=== PATIENT | female | born 1995 | race African-American/Black ===

== ENCOUNTER 2022-08-20 19:24 | Emergency (ER) | payer BC, MEDICAID, SELFPAY ==
--- NOTE | ~2022-08-20 | XR_ITS ---
EXAM: XR ankle LT min 3V DATE: 08/20/2022 20:11 HISTORY: sports injury, SWELLING W PAIN TO LATERAL ANKLE, LIMITED ROM . COMPARISON: None available. FINDINGS: Normal mineralization. No fracture or dislocation. No lytic or blastic lesion. Joint space s are maintained. No erosion or periosteal change. Soft tissues within normal limits. IMPRESSION: No acute osseous finding in the left ankle. Reviewed, dictated and finalized at location K. ER OFF
[2022-08-20 20:10] VITALS: BP 142/88; PULSE 86; RESP 16; TEMP 36.8; O2SAT 98
--- NOTE | 2022-08-20 21:16 | ED.LOWEXIN ---
HPI - Extremity Injury (Lower) General Chief Complaint: Extremity Injury, Lower Stated Complaint: twisted my ankle Time Seen by Provider: 08/20/22 20:45 History of Present Illness HPI Narrative: 26-year-old female presents to the emergency room for evaluation of left ankle pain. Patient states that she is playing basketball prior to arrival and twisted her ankle. Patient states that she applied some ice on her ankle. Was not ambulatory following the injury. No other injuries. Related Data Allergies Allergy/AdvReac Type Severity Reaction Status Date / Time No Known Allergies Allergy Verified 08/20/22 19:27 Review of Systems Review of Systems: CONSTITUTIONAL: Denies fever, chills, or sweats. EYES: Denies visual changes, redness, or discharge. ENT: Denies rhinorrhea, congestion, sore throat, or otalgia. CARDIOVASCULAR: Denies chest pain, palpitations, or edema. RESPIRATORY: Denies cough or dyspnea. GASTROINTESTINAL: Denies abdominal pain, nausea, vomiting, or diarrhea. GENITOURINARY: Denies dysuria or hematuria. SKIN: Denies rash or itching. MUSCULOSKELETAL: Left ankle pain NEUROLOGIC: Denies headache, numbness, dizziness, or weakness. PSYCHIATRIC: Denies anxiety or depression. [facility] Social History Social History Smoking status: Never smoker Alcohol intake: never Substance use: never Substance use type: does not use Additional living arrangements comments: single Additional occupation/education comments: paraprofessional Gender identity (if verbalized by the patient): Female Sexual Orientation (if Verbalized by the Patient): Straight or Heterosexual Exam Narrative: GENERAL: Well-appearing, well-nourished, no physical limitations, and in no acute distress. HEAD: Normocephalic, atraumatic. EYES: Conjunctivae normal, PERRLA and EOMI. CHEST: Clear to auscultation. No respiratory distress. No wheezes rales or rhonchi. HEART: Regular rate and rhythm. No murmur heard. Normal peripheral pulses. EXTREMITIES: left ankle: +STS and +TTP to lateral malleolus, no drainage, no obvious bony abnormality,LROM due to pain, neurovascular is intact distally SKIN: Warm, dry, no rash. No noted wounds NEURO: No focal deficits. Alert and oriented x3. MAEW. CN's II-XI intact bilaterally, normal gait PSYCH: Cooperative. Normal mood and affect. Course Vital Signs Vital signs: Vital Signs Temperature 36.8 C 08/20/22 20:10 Pulse Rate 86 08/20/22 20:10 Respiratory Rate 16 08/20/22 20:10 Blood Pressure 142/88 H 08/20/22 20:10 Pulse Oximetry 98 08/20/22 20:10 Temperature 36.8 C 08/20/22 20:10 Pulse Rate 86 08/20/22 20:10 Respiratory Rate 16 08/20/22 20:10 Blood Pressure 142/88 H 08/20/22 20:10 Pulse Oximetry 98 08/20/22 20:10 MDM - Extremity Injury (Lower) Imaging Data Radiologist's impression: Impressions Ankle X-Ray 08/20/22 21:18 IMPRESSION: No acute osseous finding in the left ankle. Discharge Plan Discharge Clinical Impression: Ankle sprain and strain Patient Disposition: Home, Self-Care Condition: Stable Instructions: Antibiotic Form, Ankle Sprain (DC) Prescriptions: New meloxicam 15 mg tablet 15 mg PO DAILY Qty: 20 0RF Follow-up/Referrals: PHYSICIAN,ELECTRONIC CONSOLE DISPLAY OPERATOR [Primary Care Provider] - Adam Brandt MD [Physician] - Time of Disposition: 21:14
[2022-08-20] MEDS: IBUPROFEN 400 MG TABLET 800 MG (21:22)
== END 2022-08-20 21:32 | disposition home or self-care (01) ==
PROVIDERS: Emergency Provider Nurse Practitioner Family
DX: S93.402A Sprain of unspecified ligament of left ankle, initial encounter (principal); S96.912A Strain of unspecified muscle and tendon at ankle and foot level, left foot, initial encounter; X50.9XXA Other and unspecified overexertion or strenuous movements or postures, initial encounter; Y93.67 Activity, basketball
CPT/HCPCS: 73610; 99283; A9270